=== PATIENT | female | born 1970 | race Two or more races ===

== ENCOUNTER 2022-10-01 19:11 | Inpatient (IN) | payer OTHER ==
[~2022-10-01] VITALS: Ht 157.5 cm; Wt 74.8 kg
[2022-10-01 19:32] LABS: MEAN CORPUSCULAR HEMOGLOBIN 30.4 uug (24.7-32.8); PLATELET COUNT (AUTO) 231 K/uL (179-408)
[2022-10-01 19:42] LABS: CARBON DIOXIDE 26 mmol/L (21-32); CHLORIDE 103 mmol/L (98-107); CREATININE 0.7 mg/dL (0.6-1.3); GLUCOSE 166 mg/dL (74-106); POTASSIUM 3.4 mmol/L (3.5-5.1); UREA NITROGEN, BLOOD 18 mg/dL (7-18)
[2022-10-01 19:50] LABS: ALANINE AMINOTRANSFERASE 32 U/L (14-59); ALKALINE PHOSPHATASE 121 U/L (50-136); ASPARTATE AMINOTRANSFERASE 22 U/L (15-37); BILIRUBIN,DIRECT 0.1 mg/dL (0.0-0.2); BILIRUBIN,TOTAL 0.2 mg/dL (0.2-1.0)
[2022-10-01 19:57] LABS: MAGNESIUM 2.2 mg/dL (1.8-2.4); THYROID STIMULATING HORMONE 1.395 mIU/mL (0.358-3.740)
[2022-10-01] MEDS ORDERED: ASPIRIN 81 MG TAB.CHEW PO ONE (22:45)
[2022-10-01] MEDS ORDERED: NITROGLYCERIN OINT 1 GM PACKET TP ONE (22:45)
[2022-10-01] MEDS ORDERED: ACETAMINOPHEN 325 MG TABLET PO PRN (23:45)
[2022-10-01] MEDS ORDERED: ONDANSETRON 4 MG/2 ML VIAL IV PRN (23:45)
[2022-10-01] MEDS ORDERED: REMEDY ESSENTIAL ZINC PASTE 113 GM TP PRN (23:45)
[2022-10-01] MEDS ORDERED: MAGNESIUM HYDROXIDE 30 ML LIQUID UDC PO PRN (23:45)
[2022-10-02] MEDS ORDERED: ASPIRIN 81 MG TAB.CHEW ONE (00:02)
[2022-10-02] MEDS ORDERED: NITROGLYCERIN OINT 1 GM PACKET TP ONE (00:02)
[2022-10-02] MEDS ORDERED: METOPROLOL SUCCINATE XL 25 MG TAB.SR.24H PO ONE ×2 (00:15→04:13)
--- NOTE | 2022-10-02 03:00 | NUR ---
Unable to administer Toprol XL 25mg due to not being stocked in [facility]. Spoke to Jonathon MacielCompliance Counsel, will be bringing it down med from other floor
--- NOTE | 2022-10-02 04:14 | NUR ---
Metropolol Succinate xl 25mg pulled out from [facility] by [facility] Builder Jonathon NEELY.
--- NOTE | 2022-10-02 05:18 | NUR ---
Spoke to Kacey NEELY on third floor. Patient will be admitted to third floor Room 320. No bed avaliable until 6am. Waiting for call back from Kacey NEELY.
--- NOTE | 2022-10-02 06:59 | NUR ---
Called third floor to give report, RN not ready. Waiting for call back.
[2022-10-02 07:37] LABS: HEMATOCRIT 37.2 % (31.2-41.9); MEAN CORPUSCULAR HEMOGLOBIN 30.5 uug (24.7-32.8); MEAN CORPUSCULAR VOLUME 89.7 fL (75.5-95.3); PLATELET COUNT (AUTO) 215 K/uL (179-408)
[2022-10-02 07:59] LABS: CREATININE 0.7 mg/dL (0.6-1.3); MAGNESIUM 2.3 mg/dL (1.8-2.4); PHOSPHOROUS 3.5 mg/dL (2.5-4.9); POTASSIUM 3.5 mmol/L (3.5-5.1)
--- NOTE | 2022-10-02 08:20 | NUR ---
Pt transfered to room 320, Tele.
[2022-10-02 08:22] VITALS: BP 133/52
[2022-10-02] MEDS: ASPIRIN 81 MG TAB.CHEW PO SCH (09:39)
[2022-10-02 11:51] VITALS: BP 104/53
[2022-10-02 16:15] VITALS: BP 110/44
--- NOTE | 2022-10-02 19:58 | NUR ---
RECEIVED REPORT FROM CHIN ERAZO FROM ER. PATIENT IS ALERT & ORIENTED X4 AND ABLE TO SPEAK [place]GI[place]. PATIENT ARRIVED STABLE, VITAL SIGNS WITHIN NORMAL LIMITS. PATIENT DENIES PAIN. PATIENT TOLERATES PO MEDICATIONS AND DIET WELL. PATIENT VOIDS ADEQUATELY VIA THE TOILET. PATIENT AMBULATES WITH A STEADY GAIT. PATIENT DENIES CHEST PAIN. NO ACUTE DISTRESS. HOURLY ROUNDING COMPLETED. BED IN LOW CONDITION. PATIENT ORIENTED TO UNIT, AND INSTRUCTED TO CALL THE RN. ALL NEEDS MET AT THIS TIME. PATIENT REQUESTED TO DISCHARGE. NOTIFY MD. PER MD, PENDING RESULTS FROM THE ECHO. ECHO RESULTS STILL PENDING. RN NOTIFIED PATIENT OF THE PLAN OF CARE. PATIENT, WHILE SADDEN, WAS AGREEABLE TO STAY THE NIGHT UNTIL THE ECHO RESULTS WERE COMPLETED. BROTHER & VISITED PATIENT TODAY. ALL QUESTIONS ANSWERED AT THIS TIME. ALL NEEDS MET AT THIS TIME. RN ENDORSED CARE TO CHIN JI.
[2022-10-02 20:00] VITALS: BP 131/36
[2022-10-03] VITALS: BP 126/58
[2022-10-03 04:00] VITALS: BP 111/40
[2022-10-03] MEDS: ASPIRIN 81 MG TAB.CHEW PO SCH (08:12)
[2022-10-03 11:29] VITALS: BP 101/41
== END 2022-10-03 13:00 | disposition home or self-care (01) | DRG 203 ==
LOC: ER 19:11 → TELE3 10-02 07:51
PROVIDERS: ADMIT Internal Medicine; ATTEND Internal Medicine
DX: M94.0 Chondrocostal junction syndrome [Tietze] (principal); E78.5 Hyperlipidemia, unspecified; Z20.822 Contact with and (suspected) exposure to COVID-19; Z88.0 Allergy status to penicillin
CPT/HCPCS: 36415; 71045; 83735; 84100; 84443; 84484; 85025; 93005; 93307; A4663; G0378

== ENCOUNTER 2023-09-21 15:44 | Emergency (ER) | payer OTHER ==
[~2023-09-21] VITALS: Ht 160 cm; Wt 72.6 kg
[2023-09-21] MEDS ORDERED: IV NORMAL SALINE 500 ML BAG IV ONE (17:45)
[2023-09-21] MEDS ORDERED: DEXAMETHASONE SOD PHOSPHATE 4 MG INJ IV ONE (17:45)
[2023-09-21] MEDS ORDERED: KETOROLAC TROMETHAMINE 15 MG INJ IVP ONE (17:45)
[2023-09-21 17:55] LABS: BASOPHILS % (AUTO) 0.4 % (0.0-2.0); EOSINOPHILS % (AUTO) 0.1 % (0.0-7.0); HEMATOCRIT 40.2 % (31.2-41.9); HEMOGLOBIN 13.7 g/dL (10.9-14.3); LYMPHOCYTES % (AUTO) 28.9 % (20.5-51.5); MEAN CORPUSCULAR HEMOGLOBIN 30.6 uug (24.7-32.8); MEAN CORPUSCULAR HGB CONC 34 g/dL (32.3-35.6); MEAN CORPUSCULAR VOLUME 89.5 fL (75.5-95.3); MONOCYTES # (AUTO) 0.3 K/uL (0.1-1.30); MONOCYTES % (AUTO) 3.9 % (0.0-11.0); NEUTROPHILS # (AUTO) 4.7 K/uL (1.8-8.9); NEUTROPHILS % (AUTO) 66.7 % (38.5-71.5); PLATELET COUNT (AUTO) 225 K/uL (179-408); RED BLOOD CELL COUNT(AUTO) 4.49 MIL/uL (3.63-4.92); RED CELL DISTRIBUTION WIDTH 12.6 % (12.3-17.7)
[2023-09-21 17:58] LABS: DIFFERENTIAL COMMENT 1
[2023-09-21] MEDS ORDERED: DEXAMETHASONE SOD PHOSPHATE 4 MG INJ ONE (18:05)
[2023-09-21] MEDS ORDERED: KETOROLAC TROMETHAMINE 15 MG INJ ONE (18:05)
[2023-09-21 18:16] LABS: ALANINE AMINOTRANSFERASE 30 U/L (14-59); ALBUMIN 3.7 g/dL (3.4-5.0); ALKALINE PHOSPHATASE 80 U/L (50-136); ASPARTATE AMINOTRANSFERASE 14 U/L (15-37); BILIRUBIN,DIRECT 0.1 mg/dL (0.0-0.2); BILIRUBIN,TOTAL 0.4 mg/dL (0.2-1.0); CALCIUM 8.9 mg/dL (8.5-10.1); CARBON DIOXIDE 30 mmol/L (21-32); CHLORIDE 100 mmol/L (98-107); CREATININE 0.6 mg/dL (0.6-1.3); GLUCOSE 111 mg/dL (74-106); NT-PRO BNP 31 pg/mL (0-125); POTASSIUM 3.6 mmol/L (3.5-5.1); SODIUM SERUM 138 mmol/L (136-145); TOTAL PROTEIN, SERUM 7.6 g/dL (6.4-8.2); UREA NITROGEN, BLOOD 7 mg/dL (7-18)
[2023-09-21] MEDS ORDERED: MORPHINE SULFATE 4 MG/1 ML DISP.SYRIN IV ONE (21:00)
[2023-09-21] MEDS ORDERED: ONDANSETRON 4 MG/2 ML VIAL IV ONE (21:00)
[2023-09-21] MEDS ORDERED: ONDANSETRON 4 MG/2 ML VIAL ONE (21:11)
[2023-09-21] MEDS ORDERED: MORPHINE SULFATE 4 MG/1 ML DISP.SYRIN ONE (21:12)
[2023-09-21] MEDS ORDERED: NABU-140 PO (22:59)
[2023-09-21] MEDS ORDERED: HYDR-3976 PO (22:59)
[2023-09-21] MEDS ORDERED: OXYCODONE/APAP 5-325 MG TABLET PO ONE (23:00)
[2023-09-21 23:29] VITALS: BP 119/65; TEMP 98.6; O2SAT 98
== END 2023-09-21 23:00 | disposition home or self-care (01) ==
LOC: ER 15:48
DX: S29.011A Strain of muscle and tendon of front wall of thorax, initial encounter (principal); R07.89 Other chest pain; Z79.899 Other long term (current) drug therapy; Z20.822 Contact with and (suspected) exposure to COVID-19; Z88.0 Allergy status to penicillin; X58.XXXA Exposure to other specified factors, initial encounter; Y93.89 Activity, other specified; Y92.89 Other specified places as the place of occurrence of the external cause; Y99.8 Other external cause status
CPT/HCPCS: 99285; 96374; 96375; 71045; 96361; 87426; 80076; 80048; 83880; 83690; 85025; 85379; 84484 ×2; 36415; 93005; J1100; J1885; J2405; J2270; J7040; A4606; A4663